=== PATIENT | male | born 1990 | race Caucasian/White ===

== ENCOUNTER 2021-10-09 10:53 | Emergency (ER) | payer SELFPAY ==
[~2021-10-09] VITALS: Ht 200.7 cm; Wt 86.2 kg
[2021-10-09] MEDS ORDERED: ONDANSETRON ODT4 MG PO (17:06)
== END 2021-10-09 18:38 | disposition home or self-care (01) ==
LOC: ED 10:53
DX: U07.1 COVID-19 (principal)
CPT/HCPCS: 80053; 83690; 85025; 96374; 96375; 96376; 99284-25; C9803; J1790; J2060; J2405; J7030; U0003

== ENCOUNTER 2022-12-15 19:53 | Emergency (ER) | payer SELFPAY ==
[~2022-12-15] VITALS: Ht 200.7 cm; Wt 100.0 kg
[~2022-12-15 19:53] MED LIST: ONDANSETRON ODT4 MG PO
[2022-12-16] MEDS ORDERED: ONDANSETRON ODT8 MG PO (00:34)
== END 2022-12-16 04:17 | disposition home or self-care (01) ==
LOC: ED 19:53
DX: K29.20 Alcoholic gastritis without bleeding (principal)
CPT/HCPCS: 36415; 80053; 83690; 85025; 96361; 96365; 96375; 99284-25; A9270; G0480; J2405; J2765; J3411; J7030